=== PATIENT | female | born 1990 | race Caucasian/White ===

== ENCOUNTER → 2025-03-22 12:25 | Outpatient (CLI) | payer OTHER, SELFPAY ==
[2025-03-22 13:20] LABS: Add Manual Diff / Slide Review NO; Basophils Absolute Auto 0 /uL (0-100); Basophils Percent Auto 0.7 % (0-2); Eosinophils Absolute Auto 100 /uL (0-450); Eosinophils Percent Auto 0.8 % (2-4); Hematocrit 41.8 % (36-46); Hemoglobin 14.3 g/dL (12.0-16.0); Lymphocytes Absolute Auto 1700 /uL (1100-4500); Lymphocytes Percent Auto 24.6 % (25-40); Mean Corpuscular HGB Conc 34.2 % (30-36); Mean Corpuscular Hemoglobin 30.9 PG (26-34); Mean Corpuscular Volume 90.2 fL (80-100); Monocytes Absolute Auto 300 /uL (0-900); Monocytes Percent Auto 4.8 % (3-14); Neutrophils Absolute Auto 4700 /uL (1500-7000); Neutrophils Percent Auto 69.1 % (50-75); Platelet Count 336 X10^3/uL (150-400); Red Blood Cell Count 4.64 X10^6/uL (4.0-5.2); Red Cell Distribution Width 12.2 % (11.6-14.8); White Blood Cell Count 6.8 X10^3/uL (4.5-11.0)
[2025-03-22 13:37] LABS: Alanine Aminotransferase 18 IU/L (<35); Albumin 4.3 g/dL (3.5-5.0); Albumin Globulin Ratio 1.3 (1.0-2.8); Alkaline Phosphatase 55 U/L (38-126); Aspartate Aminotransferase 28 IU/L (14-36); BUN Creatinine Ratio 23.8 (6-22); Bilirubin Total 0.5 mg/dL (0.2-1.3); Blood Urea Nitrogen 20 mg/dL (7-17); Calcium 9.2 mg/dL (8.4-10.2); Carbon Dioxide 22 mmol/L (22-32); Chloride 106 mmol/L (98-107); Estimated Glomerular Filt Rate > 60 mL/min (>60); Globulin 3.2 g/dL (1.7-4.1); Glucose 87 mg/dL (70-99); HEMOLYSIS < 15 (0-50); Potassium 4.1 mmol/L (3.4-5.1); Sodium 137 mmol/L (137-145); Total Protein 7.5 g/dL (6.3-8.2)
[2025-03-22 14:07] LABS: TSH w/ Reflex to FT4 0.15 uIU/mL (0.47-4.68)
[2025-03-22 14:32] LABS: Free T4, Direct Thyroxine 1.51 ng/dL (0.78-2.19)
[2025-03-23 15:05] LABS: Rubella Antibody IgG 80.6 IU/mL (>15)
[2025-03-24 02:07] LABS: Mumps Virus IgG Antibody 46.3 AU/mL (Immune >10.9)
== END ==
PROVIDERS: PCP Family Medicine; Referring Provider Family Medicine; Visit Provider Family Medicine
DX: Z01.419 Encounter for gynecological examination (general) (routine) without abnormal findings (principal); Z01.84 Encounter for antibody response examination; E03.9 Hypothyroidism, unspecified
CPT/HCPCS: 36415; 80053; 84439; 84443; 85025; 86735; 86762; 86765

== ENCOUNTER → 2025-04-09 16:32 | Outpatient (CLI) | payer OTHER, SELFPAY | PROVIDERS: PCP Family Medicine; Visit Provider Family Medicine | DX: R31.9 Hematuria, unspecified (principal) | CPT/HCPCS: 87077; 87086; 87186 ==

== ENCOUNTER → 2025-10-12 17:25 | Outpatient (CLI) | payer OTHER, SELFPAY ==
--- NOTE | 2025-10-12 17:25 | DI.MRI.S_ITS ---
PROCEDURE: MR KNEE RT WO CON INDICATIONS: Rt knee pain TECHNIQUE: Noncontrast sagittal PD fast spin echo and T2 fast spin echo with fat saturation, sagittal 3-D FLASH with fat saturation; coronal T1 spin echo and PD fast spin echo with fat saturation, and axial PD fast spin echo with fat saturation through the knee. COMPARISON: None. FINDINGS: Image quality: Excellent. Menisci: The medial and lateral menisci demonstrate normal morphology and internal signal. The meniscal root ligaments appear intact. Cruciate ligaments: The anterior cruciate ligament is mildly thickened with intrasubstance T2 hyperintense signal near its tibial insertion. The posterior cruciate ligament is intact. Medial structures: The medial collateral ligament appears intact. Visualized portions of the pes anserinus tendons appear normal. No abnormal bursal fluid. Lateral structures: The lateral collateral ligament, long and short heads of the biceps femoris tendon appear intact. The popliteus tendon appears intact. Iliotibial band appears normal. Anterior structures: Mild distal quadriceps tendinosis at its superior patellar insertion is seen. The patellar tendon is intact. Patellar alignment is normal. Bones and cartilage: The cartilage of the medial and lateral femorotibial compartments, as well as the patellofemoral compartment, appears normal in thickness. Lobulated T2 hyperintense and T1 hypointense structure within medullary space of distal femur near intercondylar notch which may represent intraosseous cyst versus small enchondroma. Marrow edema involving anterior and medial periphery of medial tibial plateau is seen. No definite fracture line. Joint space: There is small knee joint fluid. No Pompa's cyst. Normal appearing synovial plicae are incidentally noted. IMPRESSION: 1. No definite focal meniscal tear. 2. Low-grade sprain involving ACL. No ACL rupture. The PCL is intact. 3. Distal quadriceps tendinosis. 4. Contusion involving medial periphery of proximal tibia/ medial tibial plateau . No acute fracture or dislocation. Articulating cartilages normal in thickness. Small joint effusion, no loose bodies. Benign-appearing T2 hyperintense signal within medullary space of distal femur likely represent small enchondroma versus septated cyst. 5. Small joint effusion, no loose bodies. Dictated by: Jerman Villanueva M.D. on 10/13/2025 at 8:39 Approved by: Jerman Villanueva M.D. on 10/13/2025 at 8:48
== END ==
PROVIDERS: PCP Family Medicine; Referring Provider Family Medicine; Visit Provider Family Medicine
DX: S83.511A Sprain of anterior cruciate ligament of right knee, initial encounter (principal); S80.01XA Contusion of right knee, initial encounter; M25.461 Effusion, right knee; M25.561 Pain in right knee; M25.361 Other instability, right knee
CPT/HCPCS: 73721